=== PATIENT | female | born 1970 | race Caucasian/White ===

== ENCOUNTER 2017-12-01 19:44 | Emergency (ER) | payer BC ==
[~2017-12-01] VITALS: Ht 160 cm; Wt 71.2 kg
[2017-12-01 19:59] VITALS: Ht 160 cm; Wt 71.2 kg
[2017-12-01 22:02] VITALS: BP 144/83
== END 2017-12-01 22:02 | disposition home or self-care (01) ==
LOC: ED 19:44
DX: S62.631A Displaced fracture of distal phalanx of left index finger, initial encounter for closed fracture (principal); Z91.040 Latex allergy status; X58.XXXA Exposure to other specified factors, initial encounter; Y93.89 Activity, other specified; Y92.89 Other specified places as the place of occurrence of the external cause; Y99.8 Other external cause status
CPT/HCPCS: 90715; J2001